=== PATIENT | male | born 1960 | race Caucasian/White ===

== ENCOUNTER 2019-08-23 15:37 | Emergency (ER) | payer MEDICAID ==
[2019-08-23] MEDS ORDERED: Lidocaine 2% 20 ML MDV INFILT ONE (16:16)
[2019-08-23] MEDS ORDERED: Bacitracin Oint 1 GM U/D Packet TOP ONE (16:17)
--- NOTE | 2019-08-23 16:19 | EDM.PDOC ---
ED HPI GENERAL MEDICAL PROBLEM - General Chief Complaint: Laceration Stated Complaint: FINGER INJURY Time Seen by Provider: 08/23/19 16:10 Source of Information: Reports: Patient, Old Records History Limitations: Reports: No Limitations - History of Present Illness INITIAL COMMENTS - FREE TEXT/NARRATIVE: 59 yo male got his L index and long fingers in a skill saw. He presents for repair. He believes his tetanus is UTD. Onset: Today Onset Date: 08/23/19 Onset Time: 15:25 Duration: Minutes:, Constant Location: Reports: Upper Extremity, Left Quality: Reports: Burning Severity: Moderate Improves with: Reports: None Worsens with: Reports: Other (bumping wound) Context: Reports: Trauma Associated Symptoms: Reports: No Other Symptoms Treatments [employer]IAN: Reports: Other (see below) (none) Left Finger-Index Pain Score (Numeric/FACES): 3 - Related Data Allergies Allergy/AdvReac Type Severity Reaction Status Date / Time simvastatin [From Zocor] Allergy Change Verified 08/23/19 15:47 Mental Status Home Meds: Home Meds NK [No Known Home Meds] 08/23/19 [History] Past Medical History Cardiovascular History: Reports: OK Endocrine/Metabolic History: Reports: Diabetes, Type II Social & Family History - Tobacco Use Smoking Status *Q: Never Smoker ED ROS GENERAL - Review of Systems Review Of Systems: See Below Constitutional: Reports: No Symptoms Musculoskeletal: Reports: No Symptoms Skin: Reports: Wound (L index and long fingers) Neurological: Reports: No Symptoms ED EXAM, SKIN/RASH Exam: See Below Exam Limited By: No Limitations General Appearance: Alert, WD/WN, No Apparent Distress Extremities: Other (irregular lacerations of the distal L index and long fingers ). No: Non-Tender, Pedal Edema, Limited Range of Motion, Increased Warmth, Redness Neurological: Alert, Oriented, CN II-XII Intact, Normal Cognition, No Motor/ Sensory Deficits Psychiatric: Normal Affect, Normal Mood Skin: Warm, Dry, Normal Color, No Rash, Wound/Incision Location, Skin: Upper Extremity, Left Characteristics: Other (irregular) Associated features: Tenderness. No: Warmth, Swelling, Induration, Lymphangitis ED SKIN PROCEDURES - Laceration/Wound Repair Left Distal Digit - 2nd (Index) Appearance: Subcutaneous, Irregular, Clean Distal NVT: Neuro & Vascular Intact, No Tendon Injury Anesthetic Type: Digital Local Anesthesia - Lidocaine (Xylocaine): 2% Plain Local Anesthetic Volume: Other (6 ml) Skin Prep: Saline Exploration/Debridement/Repair: Wound Explored, Explored to Base, Minimal Debridement Closed with: Sutures Lac/Wound length In cm: 2.6 Suture Size: 5-0 # of Sutures: 10 Suture Type: Nylon, Interrupted, Simple Drain Placement: No Sterile Dressing Applied: Nurse Tetanus Status Addressed: Yes Complications: No Left Distal Digit - 3rd (Middle) Appearance: Subcutaneous, Irregular, Clean Anesthetic Type: Digital Local Anesthesia - Lidocaine (Xylocaine): 2% Plain Local Anesthetic Volume: Other (6 ml) Skin Prep: Saline Saline Irrigation (cc's): 15 Closed with: Sutures Lac/Wound length In cm: 2.1 Suture Size: 5-0 Suture Type: Nylon, Interrupted, Simple Suture Size: 5-0 # of Sutures: 5 Drain Placement: No Sterile Dressing Applied: Nurse Tetanus Status Addressed: Yes Complications: No Course - Vital Signs Last Recorded V/S: Last Vital Signs Temp 36.1 C 08/23/19 15:52 Pulse 86 08/23/19 15:52 Resp 14 08/23/19 15:52 BP 169/88 H 08/23/19 15:52 Pulse Ox 97 08/23/19 15:52 - Orders/Labs/Meds Orders: Active Orders 24 hr Category Date Time Status Fingers Second Digit Lt F1 [CR] Stat Exams 08/23/19 16:27 Taken Meds: Medications Discontinued Medications Generic Name Dose Route Start Last Admin Trade Name Freq PRN Reason Stop Dose Admin Bacitracin 2 dose 08/23/19 16:17 08/23/19 16:23 Bacitracin Oint 1 Gm TOP 08/23/19 16:18 2 dose ONETIME ONE Administration Lidocaine HCl 6 ml 08/23/19 16:16 08/23/19 16:23 Xylocaine 2% INFILT 08/23/19 16:17 6 ml ONETIME ONE Administration - Radiology Interpretation Free Text/Narrative:: L index finger X-ray-small avulsion noted Departure - Departure Time of Disposition: 17:25 Disposition: Home, Self-Care 01 Condition: Good Clinical Impression: Avulsion fracture of bone - Discharge Information *PRESCRIPTION DRUG MONITORING PROGRAM REVIEWED*: No *COPY OF PRESCRIPTION DRUG MONITORING REPORT IN PATIENT SOUMYA: No Instructions: Sutured Wound Care, [id number] Referrals: Roiko,Isauro, SHANK SORTER [Primary Care Provider] - Forms: ED Department Discharge Additional Instructions: Take cephalexin as directed until gone. Clean wound twice daily with soap and water. Dry. Apply Bacitracin ointment and a new dressing. Take ibuprofen and/or acetaminophen for pain relief. Elevate today to reduce pain and bleeding. Stitches out in 9-10 days in the clinic, call for an appt. Return for signs of infection. Sepsis Event Note - Evaluation Sepsis Screening Result: No Definite Risk - Focused Exam Vital Signs: Vital Signs Temp Pulse Resp BP Pulse Ox 08/23/19 15:52 36.1 C 86 14 169/88 H 97 Date Exam was Performed: 08/23/19 Time Exam was Performed: 17:07 - My Orders Last 24 Hours: My Active Orders 08/23/19 16:27 Fingers Second Digit Lt F1 [CR] Stat - Assessment/Plan Last 24 Hours: My Active Orders 08/23/19 16:27 Fingers Second Digit Lt F1 [CR] Stat
[2019-08-23] MEDS ORDERED: Cephalexin 250 MG Cap PO ONE (17:11)
--- NOTE | 2019-08-24 11:15 | CR ---
Fingers Second Digit Lt F1 CLINICAL HISTORY: Table saw injury FINDINGS: There is soft tissue disruption over the radial aspect of the tip of the index finger. The there are some radiopacities within the soft tissue which are likely small bone fragments. IMPRESSION: Soft tissue laceration Small bone fragments in the tip of the index finger off the distal phalanx
== END 2019-08-23 17:36 | disposition home or self-care (01) ==
LOC: JP.ED 15:37
DX: S62.631A Displaced fracture of distal phalanx of left index finger, initial encounter for closed fracture (principal); S61.213A Laceration without foreign body of left middle finger without damage to nail, initial encounter; E11.9 Type 2 diabetes mellitus without complications; I25.2 Old myocardial infarction; Z88.8 Allergy status to other drugs, medicaments and biological substances; W29.8XXA Contact with other powered hand tools and household machinery, initial encounter
CPT/HCPCS: 12002; 73140; 99283; A9270; J2001